=== PATIENT | male | born 1970 | race Caucasian/White ===

== ENCOUNTER 2018-11-29 15:13 | Day surgery (SDC) | payer OTHER ==
[2018-11-29] MEDS ORDERED: LACTATED RINGER'S 1,000 ML IV (17:00)
[2018-11-29] MEDS ORDERED: CEFAZOLIN 2 GM/50 ML (PMX) 50 ML IVPB (17:30)
[2018-11-29] MEDS: BUPIVACAINE 0.5% (SDV) 30 ML INJ INJ (18:45)
[2018-11-29] MEDS: POLYMYXIN/BACITRACIN 1L IRRIG IRR (18:45)
[2018-11-29] MEDS ORDERED: PROPOFOL 20 ML (18:52)
[2018-11-29] MEDS ORDERED: LIDOCAINE 2% (SDV) 5 ML INJ (18:53)
[2018-11-29] MEDS ORDERED: CEFAZOLIN 1 GM INJ (19:09)
[2018-11-29] MEDS ORDERED: BUPIVACAINE 0.5% (SDV) 30 ML INJ (20:36)
[2018-11-29] MEDS ORDERED: ROCURONIUM 50 MG INJ (20:40)
[2018-11-29] MEDS ORDERED: SUGAMMADEX SODIUM 200 MG/2 ML VIAL IV (20:40)
[2018-11-29] MEDS ORDERED: hydrALAzine 20 MG INJ IV (21:00)
[2018-11-29] MEDS ORDERED: KETOROLAC 30 MG INJ IV (21:00)
[2018-11-29] MEDS ORDERED: LABETALOL HCL 20MG INJ IV (21:00)
[2018-11-29] MEDS ORDERED: FENTAnyl 50 MCG/ML VIAL IV ×3 (21:00)
[2018-11-29] MEDS ORDERED: DIPHENHYDRAMINE 50 MG INJ IV (21:00)
[2018-11-29] MEDS ORDERED: MIDAZOLAM 1 MG/ML 2 ML INJ IV (21:00)
[2018-11-29] MEDS ORDERED: HYDROmorphONE 1 MG/5 ML IV SYRINGE IV ×3 (21:00)
[2018-11-29] MEDS ORDERED: EPHEDrine 25 MG/5 ML SYG IV (21:00)
[2018-11-29] MEDS ORDERED: MEPERIDINE 25 MG INJ IV (21:00)
[2018-11-29] MEDS ORDERED: OXYCODONE/ACETAMINOPHEN (5/325) TAB PO ×2 (21:00)
[2018-11-29] MEDS ORDERED: ALBUTEROL 0.083% (NEB) 2.5 MG/3 ML AMP HHN (21:00)
[2018-11-29] MEDS: ONDANSETRON 4 MG INJ IV (21:23)
== END 2018-11-29 22:06 | disposition home or self-care (01) ==
LOC: SDS 15:13
DX: T84.89XA Other specified complication of internal orthopedic prosthetic devices, implants and grafts, initial encounter (principal); S92.252A Displaced fracture of navicular [scaphoid] of left foot, initial encounter for closed fracture; X58.XXXA Exposure to other specified factors, initial encounter; Y79.3 Surgical instruments, materials and orthopedic devices (including sutures) associated with adverse incidents; Y83.8 Other surgical procedures as the cause of abnormal reaction of the patient, or of later complication, without mention of misadventure at the time of the procedure; E11.9 Type 2 diabetes mellitus without complications; I10 Essential (primary) hypertension; F17.200 Nicotine dependence, unspecified, uncomplicated
CPT/HCPCS: 28465; 73600-LT; 82962; 88300